=== PATIENT | male | born 1950 | race Caucasian/White ===

== ENCOUNTER 2023-12-27 23:32 | Emergency (ER) | payer BC, OTHER ==
[~2023-12-27] VITALS: Ht 180.3 cm; Wt 87.1 kg
[2023-12-28 02:05] LABS: APPEARANCE,URINE TURBID (CLEAR); BILIRUBIN,URINE NEGATIVE (NEGATIVE); BLOOD, URINE 3+ Ery/uL (NEGATIVE); COLOR,URINE DARK YELLOW (YELLOW); KETONES,URINE NEGATIVE (NEGATIVE); LEUKOCYTE ESTERASE ,URINE 2+ (NEGATIVE); NITRITE, URINE POSITIVE (NEGATIVE); PH,URINE 8.5 (5.0-8.0); PROTEIN,URINE 1+ mg/dl (NEGATIVE); UGLUCOSE NEGATIVE (NEGATIVE); UROBILINOGEN,URINE 0.2 EU/dL (0.2)
[2023-12-28 02:06] LABS: ADD URINE CULTURE YES; RBC,URINE 21-50 /HPF (0-2); WBC,URINE 21-50 /HPF (0-3)
[2023-12-28 02:07] LABS: BACTERIA,URINE Moderate /HPF (None Seen); SQUAMOUS EPITHELIAL CELL,UR Rare /HPF (None Seen)
[2023-12-28] MEDS ORDERED: CIPR-262 PO ×2 (02:10→09:47)
[2023-12-28] MEDS ORDERED: CIPROFLOXACIN HCL 500 MG TABLET ONE (02:30)
[2023-12-28] MEDS: CIPROFLOXACIN HCL 500 MG TABLET PO ONE (02:34)
[2023-12-28 02:36] VITALS: BP 131/70; TEMP 97.9; O2SAT 97
== END 2023-12-28 02:36 | disposition home or self-care (01) ==
LOC: ER 23:39
DX: T83.091A Other mechanical complication of indwelling urethral catheter, initial encounter (principal); I10 Essential (primary) hypertension
CPT/HCPCS: 81001; 87086-TC

== ENCOUNTER 2024-02-07 11:49 | Emergency (ER) | payer BC, MEDICAID ==
[~2024-02-07] VITALS: Ht 180.3 cm; Wt 87.1 kg
[~2024-02-07 11:49] MED LIST: CIPR-262 PO
[2024-02-07 12:37] LABS: APPEARANCE,URINE Clear (CLEAR); BILIRUBIN,URINE Negative (NEGATIVE); BLOOD, URINE Moderate Ery/uL (NEGATIVE); COLOR,URINE YELLOW (YELLOW); KETONES,URINE Negative (NEGATIVE); LEUKOCYTE ESTERASE ,URINE Small (NEGATIVE); NITRITE, URINE Negative (NEGATIVE); PROTEIN,URINE 30 mg/dl (NEGATIVE); UGLUCOSE Negative (NEGATIVE); UROBILINOGEN,URINE 0.2 EU/dL (0.2)
[2024-02-07 13:02] LABS: RBC,URINE 21-50 /HPF (0-2)
[2024-02-07 13:03] LABS: ADD URINE CULTURE YES; BACTERIA,URINE 1+ /HPF (None Seen); MUCUS,URINE Few /LPF (None Seen); SQUAMOUS EPITHELIAL CELL,UR 0-2 /HPF (None Seen)
[2024-02-07] MEDS ORDERED: CEFD300C3 PO (13:32)
[2024-02-07 13:43] VITALS: BP 135/71; TEMP 98; O2SAT 97
== END 2024-02-07 13:44 | disposition home or self-care (01) ==
LOC: ER 11:59
DX: Z46.6 Encounter for fitting and adjustment of urinary device (principal); I10 Essential (primary) hypertension; R33.9 Retention of urine, unspecified; Z85.46 Personal history of malignant neoplasm of prostate
CPT/HCPCS: 81001

== ENCOUNTER 2024-03-08 13:44 | Emergency (ER) | payer BC, MEDICAID ==
[~2024-03-08] VITALS: Ht 170.2 cm; Wt 93.0 kg
[~2024-03-08 13:44] MED LIST changes: +CEFD300C3 PO
[2024-03-08 13:58] VITALS: BP 132/76; TEMP 98.3; O2SAT 97
[2024-03-08 16:55] LABS: APPEARANCE,URINE SLIGHTLY CLOUDY (CLEAR); BILIRUBIN,URINE NEGATIVE (NEGATIVE); BLOOD, URINE 2+ Ery/uL (NEGATIVE); COLOR,URINE YELLOW (YELLOW); KETONES,URINE NEGATIVE (NEGATIVE); LEUKOCYTE ESTERASE ,URINE 2+ (NEGATIVE); NITRITE, URINE POSITIVE (NEGATIVE); PH,URINE 7.5 (5.0-8.0); PROTEIN,URINE TRACE mg/dl (NEGATIVE); UGLUCOSE NEGATIVE (NEGATIVE); UROBILINOGEN,URINE 0.2 EU/dL (0.2)
[2024-03-08] MEDS ORDERED: IBUP-1955 PO (17:04)
[2024-03-08 17:06] LABS: ADD URINE CULTURE YES; BACTERIA,URINE 3+ /HPF (None Seen); RBC,URINE 21-50 /HPF (0-2); SQUAMOUS EPITHELIAL CELL,UR 0-2 /HPF (None Seen); WBC,URINE 21-50 /HPF (0-3)
== END 2024-03-08 17:19 | disposition home or self-care (01) ==
LOC: ER 13:55
DX: N39.0 Urinary tract infection, site not specified (principal); T83.098A Other mechanical complication of other urinary catheter, initial encounter; I10 Essential (primary) hypertension; Z79.899 Other long term (current) drug therapy; Z60.2 Problems related to living alone; Y92.89 Other specified places as the place of occurrence of the external cause
CPT/HCPCS: 81001

== ENCOUNTER 2024-03-27 19:04 | Emergency (ER) | payer BC, MEDICAID ==
[~2024-03-27] VITALS: Ht 170.2 cm; Wt 93.0 kg
[~2024-03-27 19:04] MED LIST changes: +IBUP-1955 PO
--- NOTE | 2024-03-27 20:29 | NUR ---
BIBS FROM HOME C/O LEVINE CATHETER NEED TO CHANGE.NOT CHANGE FOR 3WKS
--- NOTE | 2024-03-27 20:45 | NUR ---
miller's catheter changed aseptically
--- NOTE | 2024-03-27 20:50 | NUR ---
urine specimen collected sent to lab
[2024-03-27 20:56] VITALS: BP 129/76; TEMP 98.9; O2SAT 97
[2024-03-27 21:16] LABS: APPEARANCE,URINE TURBID (CLEAR); BILIRUBIN,URINE NEGATIVE (NEGATIVE); BLOOD, URINE 3+ Ery/uL (NEGATIVE); COLOR,URINE YELLOW (YELLOW); KETONES,URINE NEGATIVE (NEGATIVE); LEUKOCYTE ESTERASE ,URINE 3+ (NEGATIVE); NITRITE, URINE POSITIVE (NEGATIVE); PH,URINE 8.5 (5.0-8.0); PROTEIN,URINE 2+ mg/dl (NEGATIVE); UGLUCOSE NEGATIVE (NEGATIVE); UROBILINOGEN,URINE 0.2 EU/dL (0.2)
[2024-03-27 21:34] LABS: ADD URINE CULTURE YES; BACTERIA,URINE 2+ /HPF (None Seen); RBC,URINE 21-50 /HPF (0-2); SQUAMOUS EPITHELIAL CELL,UR None Seen /HPF (None Seen); WBC,URINE 21-50 /HPF (0-3)
[2024-03-27 21:35] LABS: CALCIUM PHOSPHATE CRYSTALS,UR Few /HPF (None Seen); MUCUS,URINE Few /LPF (None Seen)
[2024-03-27] MEDS ORDERED: CEFD300C3 PO (21:48)
--- NOTE | 2024-03-27 21:55 | NUR ---
Patient discharged to home in stable condition. Written and verbal after care instructions given. Patient verbalizes understanding of instruction.
[2024-03-30] MEDS ORDERED: CEPH-570 PO (07:14)
== END 2024-03-27 21:55 | disposition home or self-care (01) ==
LOC: ER 19:06
DX: T83.098A Other mechanical complication of other urinary catheter, initial encounter (principal); N39.0 Urinary tract infection, site not specified; R33.9 Retention of urine, unspecified; I10 Essential (primary) hypertension; Z85.46 Personal history of malignant neoplasm of prostate; Z60.2 Problems related to living alone; Y84.6 Urinary catheterization as the cause of abnormal reaction of the patient, or of later complication, without mention of misadventure at the time of the procedure; Y92.89 Other specified places as the place of occurrence of the external cause
CPT/HCPCS: 81001

== ENCOUNTER 2024-03-28 19:39 | Inpatient (IN) | payer BC, OTHER ==
[~2024-03-28] VITALS: Ht 180.3 cm; Wt 94.8 kg
[~2024-03-28 19:39] MED LIST changes: -BICA50TA8 PO; -CEPH-570 PO; -DARO300T PO; -GABA-536 PO; -LISI10TA29 PO; -NIFE-34 PO; -TAMS-12 PO
[2024-03-28] MEDS: IV NS 0.9% 500 ML BAG IV ONE (21:00)
[2024-03-28] MEDS: IV NS 0.9% 1,000 ML BAG IV ONE (21:00)
[2024-03-28 21:14] LABS: BASOPHILS % (AUTO) 0.2 % (0.0-2.0); EOSINOPHILS # (AUTO) 0.1 K/uL (0.0-0.7); EOSINOPHILS % (AUTO) 1.3 % (0.0-6.0); HEMATOCRIT 39 % (39-51); HEMOGLOBIN 12.9 g/dL (13.5-17.5); LYMPHOCYTES # (AUTO) 1.7 K/uL (0.8-4.8); LYMPHOCYTES % (AUTO) 16.5 % (20.0-44.0); MEAN CORPUSCULAR HEMOGLOBIN 30 PG (26.0-33.0); MEAN CORPUSCULAR HGB CONC 33 g/dl (31.0-36.0); MEAN CORPUSCULAR VOLUME 92 fL (80-96); MONOCYTES % (AUTO) 9.4 % (2.0-12.0); NEUTROPHILS # (AUTO) 7.4 K/uL (1.8-8.9); NEUTROPHILS % (AUTO) 72.6 % (43.0-81.0); PLATELET COUNT (AUTO) 281 K/uL (150-450); RED BLOOD CELL COUNT(AUTO) 4.25 MIL/uL (4.5-6.0); RED CELL DISTRIBUTION WIDTH 15.1 % (11.5-15.0); WHITE BLOOD COUNT (AUTO) 10.3 K/uL (4.3-11.0)
[2024-03-28 21:24] LABS: CALCIUM, SERUM 9.3 mg/dL (8.5-10.1); CARBON DIOXIDE 26 mmol/L (21-32); CHLORIDE 102 mmol/L (98-107); CREATININE 1.5 mg/dL (0.6-1.3); GLUCOSE 127 mg/dL (74-106); POTASSIUM 3.9 mmol/L (3.5-5.1); SODIUM SERUM 137 mmol/L (136-145); UREA NITROGEN, BLOOD 29 mg/dL (7-18)
[2024-03-28] MEDS ORDERED: ACETAMINOPHEN 325 MG TABLET PO PRN (23:00)
[2024-03-28] MEDS ORDERED: ZOLPIDEM TARTRATE 5 MG TABLET PO PRN (23:00)
[2024-03-28] MEDS ORDERED: MAG HYDROX/AL HYDROX/SIMETH 30 ML UDC PO PRN (23:00)
[2024-03-28] MEDS ORDERED: Z GUARD REMEDY 4 OZ OINT TP PRN (23:00)
[2024-03-28] MEDS ORDERED: ONDANSETRON HCL/PF 4 MG/2 ML VIAL IVP PRN (23:00)
[2024-03-28] MEDS ORDERED: MAGNESIUM HYDROXIDE 30 ML UDC PO PRN (23:00)
[2024-03-29 00:10] VITALS: BP 159/94; TEMP 98.2; O2SAT 98
[2024-03-29 06:08] LABS: BASOPHILS % (AUTO) 0.3 % (0.0-2.0); EOSINOPHILS # (AUTO) 0.2 K/uL (0.0-0.7); EOSINOPHILS % (AUTO) 2.9 % (0.0-6.0); HEMATOCRIT 33 % (39-51); HEMOGLOBIN 11.3 g/dL (13.5-17.5); LYMPHOCYTES # (AUTO) 1.9 K/uL (0.8-4.8); LYMPHOCYTES % (AUTO) 26.3 % (20.0-44.0); MEAN CORPUSCULAR HEMOGLOBIN 30 PG (26.0-33.0); MEAN CORPUSCULAR HGB CONC 34 g/dl (31.0-36.0); MEAN CORPUSCULAR VOLUME 89 fL (80-96); MONOCYTES # (AUTO) 0.8 K/uL (0.1-1.30); NEUTROPHILS # (AUTO) 4.4 K/uL (1.8-8.9); NEUTROPHILS % (AUTO) 59.5 % (43.0-81.0); PLATELET COUNT (AUTO) 236 K/uL (150-450); RED BLOOD CELL COUNT(AUTO) 3.72 MIL/uL (4.5-6.0); RED CELL DISTRIBUTION WIDTH 14.5 % (11.5-15.0); WHITE BLOOD COUNT (AUTO) 7.4 K/uL (4.3-11.0)
[2024-03-29 06:20] LABS: ALANINE AMINOTRANSFERASE 18 U/L (12-78); ALBUMIN 3.2 g/dL (3.4-5.0); ALKALINE PHOSPHATASE 78 U/L (46-116); ASPARTATE AMINOTRANSFERASE 7 U/L (15-37); BILIRUBIN,DIRECT 0.3 mg/dL (0.0-0.2); BILIRUBIN,TOTAL 1.2 mg/dL (0.2-1.0); CALCIUM, SERUM 8.2 mg/dL (8.5-10.1); CARBON DIOXIDE 27 mmol/L (21-32); CHLORIDE 104 mmol/L (98-107); CREATININE 1.1 mg/dL (0.6-1.3); GLUCOSE 104 mg/dL (74-106); MAGNESIUM 2.2 mg/dL (1.8-2.4); PHOSPHORUS 2.9 mg/dL (2.5-4.9); POTASSIUM 3.4 mmol/L (3.5-5.1); SODIUM SERUM 140 mmol/L (136-145); UREA NITROGEN, BLOOD 19 mg/dL (7-18)
[2024-03-29 06:33] LABS: FREE PSA 0.15 ng/mL (0.00-45); PROSTATE SPECIFIC ANTIGEN SCR 0.13 ng/mL (0.00-4.00)
[2024-03-29] MEDS: PANTOPRAZOLE 40 MG TABLET.DR PO SCH (07:42)
[2024-03-29 08:00] VITALS: BP 145/81; TEMP 97.7; O2SAT 96
[2024-03-29] MEDS ORDERED: BICA50TA8 PO (08:19)
[2024-03-29] MEDS ORDERED: TAMS-12 PO (08:19)
[2024-03-29] MEDS ORDERED: GABA-536 PO (08:19)
[2024-03-29] MEDS ORDERED: CEFD300C3 PO (08:19)
[2024-03-29] MEDS ORDERED: DARO300T PO (08:19)
[2024-03-29] MEDS ORDERED: LISI10TA29 PO (08:19)
[2024-03-29] MEDS ORDERED: NIFE-34 PO (08:19)
[2024-03-29] MEDS: POTASSIUM CHLORIDE 20 MEQ TAB.PRT.SR PO SCH (10:39)
[2024-03-29] MEDS ORDERED: NUBEQA XX SCH (11:00)
[2024-03-29] MEDS: BICALUTAMIDE 50 MG TABLET PO SCH (12:30)
[2024-03-29] MEDS: GABAPENTIN 400 MG CAPSULE PO SCH (12:31)
[2024-03-29] MEDS: FINASTERIDE (5 MG) 5 MG TABLET PO SCH (14:27)
[2024-03-29 16:00] VITALS: BP 142/78; TEMP 99.3; O2SAT 96
[2024-03-29 16:00] LABS: APPEARANCE,URINE CLEAR (CLEAR); BILIRUBIN,URINE NEGATIVE (NEGATIVE); BLOOD, URINE 3+ Ery/uL (NEGATIVE); COLOR,URINE YELLOW (YELLOW); KETONES,URINE NEGATIVE (NEGATIVE); LEUKOCYTE ESTERASE ,URINE 1+ (NEGATIVE); NITRITE, URINE NEGATIVE (NEGATIVE); PROTEIN,URINE NEGATIVE (NEGATIVE); UGLUCOSE NEGATIVE (NEGATIVE); UROBILINOGEN,URINE 0.2 EU/dL (0.2)
[2024-03-29 16:14] LABS: URINE TOTAL PROTEIN 25.6 mg/dL (0-11.9)
[2024-03-29 16:36] LABS: RBC,URINE 21-50 /HPF (0-2)
[2024-03-29 16:37] LABS: ADD URINE CULTURE YES; BACTERIA,URINE 1+ /HPF (None Seen); MUCUS,URINE Rare /LPF (None Seen); SQUAMOUS EPITHELIAL CELL,UR None Seen /HPF (None Seen)
[2024-03-29 17:01] LABS: EOSINOPHIL,URINE Few
[2024-03-29] MEDS: CEFTRIAXONE 1 G in IV D5W 50 ML IV SCH (19:54)
[2024-03-29 20:00] VITALS: BP 136/83; TEMP 98.1; O2SAT 96
[2024-03-30 06:27] LABS: CALCIUM, SERUM 8.6 mg/dL (8.5-10.1); CARBON DIOXIDE 23 mmol/L (21-32); CHLORIDE 106 mmol/L (98-107); CREATININE 0.9 mg/dL (0.6-1.3); GLUCOSE 104 mg/dL (74-106); POTASSIUM 3.7 mmol/L (3.5-5.1); SODIUM SERUM 142 mmol/L (136-145); UREA NITROGEN, BLOOD 14 mg/dL (7-18)
[2024-03-30] MEDS ORDERED: CEPH-570 PO (07:14)
[2024-03-30 08:00] VITALS: BP 166/83; TEMP 98.1; O2SAT 96
[2024-03-30] MEDS: LISINOPRIL (10MG) 10 MG TABLET PO SCH (08:37)
[2024-03-30] MEDS: TAMSULOSIN 0.4 MG CAP.SR.24H PO SCH (08:37)
[2024-03-30 08:45] VITALS: BP 166/83
[2024-03-30] MEDS: NIFEdipine XL (30MG) 30 MG TAB PO SCH (08:45)
[2024-03-30] MEDS ORDERED: NIFEDIPINE XL 60 MG TAB.ER.24 PO SCH (09:00)
== END 2024-03-30 11:07 | disposition home or self-care (01) | DRG 689 ==
LOC: ER 19:41 → MED 22:38
PROVIDERS: ADMIT Nurse Practitioner Family; ATTEND Nurse Practitioner Acute Care
DX: N39.0 Urinary tract infection, site not specified (principal); N17.0 Acute kidney failure with tubular necrosis; I10 Essential (primary) hypertension; Z85.46 Personal history of malignant neoplasm of prostate; Z79.899 Other long term (current) drug therapy; E66.9 Obesity, unspecified; R73.9 Hyperglycemia, unspecified; Z68.29 Body mass index [BMI] 29.0-29.9, adult; N40.1 Benign prostatic hyperplasia with lower urinary tract symptoms; R33.8 Other retention of urine; C61 Malignant neoplasm of prostate; N13.9 Obstructive and reflux uropathy, unspecified
CPT/HCPCS: 36415; 76770-TC; 80048-TC; 80076-TC; 81001; 82570-TC; 83735-TC; 84100-TC; 84153-TC; 84154-TC; 84300-TC; 84443-TC; 85025-TC; 87086-TC; A4223; G0378; J0696; J7030; J7040; J7060

== ENCOUNTER → 2024-03-28 | Emergency (ER) | payer BC, MEDICAID ==
[~2024-03-28] VITALS: Ht 180.3 cm; Wt 93.0 kg
[~2024-03-28] MED LIST changes: +BICA50TA8 PO; +CEPH-570 PO; +DARO300T PO; +GABA-536 PO; +LISI10TA29 PO; +NIFE-34 PO; +TAMS-12 PO
[2024-03-28 15:20] VITALS: BP 112/67; TEMP 98; O2SAT 99
== END | disposition home or self-care (01) ==
LOC: ER 12:56
DX: T83.098A Other mechanical complication of other urinary catheter, initial encounter (principal); R33.9 Retention of urine, unspecified; I10 Essential (primary) hypertension; Z85.46 Personal history of malignant neoplasm of prostate; Z60.2 Problems related to living alone; Y84.6 Urinary catheterization as the cause of abnormal reaction of the patient, or of later complication, without mention of misadventure at the time of the procedure; Y92.89 Other specified places as the place of occurrence of the external cause